=== PATIENT | female | born 1990 | race Two or more races ===

== ENCOUNTER 2022-11-21 15:00 | Inpatient (IN) | payer BC ==
[~2022-11-21 15:00] MED LIST: IBUPROFEN 800 MG/8 ML IJ IVPB SCH
[2022-11-21] MEDS ORDERED: ELECTROLYTE-148 SOLN 1,000 ML IV SCH ×2 (16:00→16:30)
[2022-11-21 16:03] VITALS: BMI 38.1
[2022-11-21] MEDS ORDERED: CITRIC ACID/SODIUM CITRATE 30 ML UNIT-DOSE CUP PO ONE (16:30)
[2022-11-21 17:09] LABS: BASO % 0.3 % (0-2.0); EOS % 2.1 % (0-4.5); HEMATOCRIT 32.5 % (32.4-45.2); LYMPH % 19.3 % (8-40); MCH 27.6 pg (25.7-33.7); MEAN CELL VOLUME 81.3 fl (80-96); MEAN PLT VOLUME 8.3 fl (7.5-11.1); MONO % 6.7 % (3.8-10.2); NEUT % 71.6 % (42.8-82.8); PLATELET COUNT 188 10^3/uL (134-434); RDW 16.4 % (11.6-15.6); WHITE BLOOD COUNT 10.1 K/mm3 (4.0-10.0)
[2022-11-21 17:15] LABS: INR 0.99 (0.83-1.09); PROTHROMBIN TIME (PATIENT) 11.5 SEC (9.7-13.0)
[2022-11-21 17:18] LABS: ACTIVATED PTT 30.9 SECONDS (25.2-36.5)
[2022-11-21 17:20] LABS: POTASSIUM 3.7 mmol/L (3.5-5.1)
[2022-11-21 17:22] LABS: BLOOD UREA NITROGEN 5.3 mg/dL (7-18); CALCIUM 8.8 mg/dL (8.5-10.1)
[2022-11-21 17:25] LABS: CREATININE 0.6 mg/dL (0.55-1.3)
[2022-11-21] MEDS ORDERED: FENTANYL CITRATE/PF 50 MCG/ML VIAL ONE (19:07)
[2022-11-21] MEDS ORDERED: ONDANSETRON 4 MG/2 ML VIAL ONE (19:07)
[2022-11-21] MEDS ORDERED: DEXAMETHASONE SOD PHOSPHATE 4 MG/1 ML VIAL ONE (19:07)
[2022-11-21] MEDS ORDERED: ceFAZolin SODIUM 1 GM VIAL ONE (19:07)
[2022-11-21] MEDS ORDERED: morphine SULFATE/PF 1 MG/2 ML (2cc Syringe - QUVA) ONE (19:07)
[2022-11-21] MEDS ORDERED: OXYTOCIN 10 UNITS/ML VIAL ONE ×3 (19:32)
[2022-11-21] MEDS ORDERED: KETOROLAC TROMETHAMINE 30 MG/1 ML VIAL ONE (20:33)
[2022-11-21 20:35] LABS: CORD HCO3 24.3 mmHg (20-29); CORD PCO2 53.9 mmHg (30-78); CORD pH 7.271 (7.14-7.44)
[2022-11-21 20:38] LABS: CORD BASE EXCESS -4.1 mmol/L (0-2); CORD HCO3 21.4 mmHg (20-29); CORD PCO2 40.6 mmHg (30-78); CORD pH 7.339 (7.14-7.44)
[2022-11-21] MEDS ORDERED: BENZOCAINE 28 GM HEMORRHOIDAL OINTMENT TP PRN (20:47)
[2022-11-21] MEDS ORDERED: METHYLERGONOVINE MALEATE 0.2 MG/1 ML AMP IM PRN (20:47)
[2022-11-21] MEDS ORDERED: BENZOCAINE 20% 57 GM BOTTLE TP PRN (20:47)
[2022-11-21] MEDS ORDERED: WITCH HAZEL 50% (TUCKS) 40 PAD/JAR PAD TP PRN (20:47)
[2022-11-21] MEDS ORDERED: ONDANSETRON 4 MG/2 ML VIAL IVPUSH PRN (20:50)
[2022-11-21] MEDS ORDERED: OXYTOCIN 20 UNITS in 0.9% NS 20 UNIT/1,000 ML INFUS.BAG IV ONE (22:41)
[2022-11-21] MEDS: OXYTOCIN 20 UNITS in 0.9% NS 20 UNIT/1,000 ML INFUS.BAG IV SCH (22:45)
[2022-11-22] MEDS ORDERED: IBUPROFEN 800 MG/8 ML IJ IVPB ONE (02:15)
[2022-11-22] MEDS: OXYTOCIN 20 UNITS in 0.9% NS 20 UNIT/1,000 ML INFUS.BAG IV SCH (07:16)
[2022-11-22] MEDS: ACETAMINOPHEN 325 MG TABLET (FP) PO PRN ×2 (08:35→17:14)
[2022-11-22] MEDS ORDERED: oxyCODONE HCL 5 MG TABLET PO PRN (08:47)
[2022-11-22 08:56] LABS: BASO % 0.1 % (0-2.0); EOS % 0.9 % (0-4.5); HEMATOCRIT 27.3 % (32.4-45.2); HEMOGLOBIN 9.3 GM/dL (10.7-15.3); LYMPH % 20.6 % (8-40); MCH 27.7 pg (25.7-33.7); MEAN CELL VOLUME 81.5 fl (80-96); MEAN PLT VOLUME 8.5 fl (7.5-11.1); MONO % 6.6 % (3.8-10.2); NEUT % 71.8 % (42.8-82.8); PLATELET COUNT 181 10^3/uL (134-434); RBC 3.35 M/mm3 (3.60-5.2); RDW 15.9 % (11.6-15.6); WHITE BLOOD COUNT 12.1 K/mm3 (4.0-10.0)
[2022-11-22] MEDS: PRENATAL VITAMINS W/ FOLIC ACID TABLET (FP) PO SCH (09:29)
[2022-11-22] MEDS: IBUPROFEN 800 MG/8 ML IJ IVPB SCH ×2 (11:01→18:53)
[2022-11-22] MEDS: oxyCODONE HCL 5 MG TABLET PO PRN (20:47)
[2022-11-22] MEDS: SENNOSIDES/DOCUSATE COMBO (SENNA PLUS) TABLET (UD) PO PRN (20:47)
[2022-11-22] MEDS ORDERED: BISACODYL 10 MG SUPP.RECT RC PRN (20:47)
[2022-11-22] MEDS: SIMETHICONE 80 MG TAB.CHEW (FP) PO PRN (20:47)
[2022-11-22] MEDS: IBUPROFEN 600 MG TABLET (FP) PO PRN (22:12)
[2022-11-23] MEDS: IBUPROFEN 600 MG TABLET (FP) PO PRN ×4 (02:06→20:05)
[2022-11-23] MEDS: SIMETHICONE 80 MG TAB.CHEW (FP) PO PRN ×4 (02:07→20:05)
[2022-11-23] MEDS: PRENATAL VITAMINS W/ FOLIC ACID TABLET (FP) PO SCH (09:03)
[2022-11-23] MEDS: ACETAMINOPHEN 325 MG TABLET (FP) PO PRN ×3 (11:51→22:23)
[2022-11-23 22:16] VITALS: TEMP 98.1
[2022-11-23] MEDS: SENNOSIDES/DOCUSATE COMBO (SENNA PLUS) TABLET (UD) PO PRN (22:23)
[2022-11-23] MEDS: oxyCODONE HCL 5 MG TABLET PO PRN (23:44)
[2022-11-24] MEDS: ELECTROLYTE-148 SOLN 1,000 ML IV SCH (01:46)
[2022-11-24] MEDS: OXYTOCIN 20 UNITS in 0.9% NS 20 UNIT/1,000 ML INFUS.BAG IV SCH (01:46)
[2022-11-24] MEDS: IBUPROFEN 600 MG TABLET (FP) PO PRN ×3 (01:49→11:50)
[2022-11-24] MEDS: SIMETHICONE 80 MG TAB.CHEW (FP) PO PRN (01:49)
[2022-11-24] MEDS: oxyCODONE HCL 5 MG TABLET PO PRN (04:39)
[2022-11-24] MEDS: ACETAMINOPHEN 325 MG TABLET (FP) PO PRN ×2 (05:46→09:29)
[2022-11-24 09:26] LABS: BASO % 0.5 % (0-2.0); EOS % 3.1 % (0-4.5); HEMATOCRIT 27.8 % (32.4-45.2); MCH 27.7 pg (25.7-33.7); MCHC 32.6 g/dl (32.0-36.0); MEAN PLT VOLUME 8.9 fl (7.5-11.1); MONO % 6.9 % (3.8-10.2); NEUT % 63.5 % (42.8-82.8); PLATELET COUNT 186 10^3/uL (134-434); RBC 3.27 M/mm3 (3.60-5.2); RDW 15.8 % (11.6-15.6); WHITE BLOOD COUNT 11.2 K/mm3 (4.0-10.0)
[2022-11-24] MEDS: PRENATAL VITAMINS W/ FOLIC ACID TABLET (FP) PO SCH (09:29)
[2022-11-24 10:32] VITALS: BP 111/71; PULSE 71; RESP 18
== END 2022-11-24 13:06 | disposition home or self-care (01) | DRG 788 ==
LOC: JLDR 15:00 → J3W 22:42
PROVIDERS: ADMIT Obstetrics & Gynecology; ATTEND Obstetrics & Gynecology
PROC: 10D00Z1 Extraction of Products of Conception, Low, Open Approach (ICD-10-PCS; principal; 2022-11-21)
DX: O34.211 Maternal care for low transverse scar from previous cesarean delivery (principal); O36.8130 Decreased fetal movements, third trimester, not applicable or unspecified; O90.81 Anemia of the puerperium; Z3A.39 39 weeks gestation of pregnancy; Z37.0 Single live birth
CPT/HCPCS: 36415; 36600; 80048; 82803; 85025; 85610; 85730; 86780; 86850; 86900; 86901; 88307-TC

== ENCOUNTER 2022-12-31 22:44 | Emergency (ER) | payer BC ==
[2022-12-31 22:55] VITALS: BP 111/75; PULSE 73; RESP 20; TEMP 98.4; BMI 34.0
== END 2022-12-31 23:57 | disposition left against medical advice (07) ==
LOC: JER 22:44
DX: N93.9 Abnormal uterine and vaginal bleeding, unspecified (principal); R10.9 Unspecified abdominal pain
CPT/HCPCS: 99281-25